=== PATIENT | male | born 1980 | race Caucasian/White ===

== ENCOUNTER → 2020-10-14 | Outpatient (CLI) | payer OTHER ==
[~2020-10-14] MED LIST: COVID-19 VACC, MRNA(MODERNA)/PF 100 MCG/0.5 ML VIAL IM ONE
== END ==
LOC: VACCPMC 13:45
DX: Z23 Encounter for immunization (principal); Z20.828 Contact with and (suspected) exposure to other viral communicable diseases

== ENCOUNTER → 2021-08-13 | Outpatient (CLI) | payer OTHER | LOC: VACCPMC 08:15 | DX: Z23 Encounter for immunization (principal); Z20.822 Contact with and (suspected) exposure to COVID-19 | CPT/HCPCS: 91301 ==

== ENCOUNTER → 2022-12-24 | Outpatient (CLI) | payer BC, OTHER ==
[2022-12-25 10:19] LABS: PROSTATE SPECIFIC AG TOTAL 0.8 ng/mL (0.0-4.0); PSA FREE 0.39 ng/mL
== END ==
LOC: LAB 11:37
PROVIDERS: ATTEND Internal Medicine
DX: E29.1 Testicular hypofunction (principal); Z79.899 Other long term (current) drug therapy
CPT/HCPCS: 82672; 84153; 84402

== ENCOUNTER → 2024-09-28 | Outpatient (REF) | payer BC ==
[2024-09-28 12:13] LABS: BASOPHILS # (AUTO) 0.1 (0.0-0.1); EOSINOPHILS # (AUTO) 0.3 (0.0-0.4); HEMATOCRIT 60.3 % (38.2-49.6); HEMOGLOBIN 19.7 g/dL (14.0-18.0); LYMPHOCYTES # (AUTO) 1.7 (1.0-3.2); LYMPHOCYTES % 20.6 % (18.0-39.1); MEAN CORPUSCULAR HEMOGLOBIN 31.2 pg (28-32); MEAN CORPUSCULAR HGB CONC 32.7 g/dL (31-35); MEAN CORPUSCULAR VOLUME 95.4 fL (81-99); MONOCYTES # (AUTO) 0.5 (0.2-0.8); MONOCYTES % 6.1 % (4.4-11.3); NEUTROPHILS # (AUTO) 5.7 (2.1-6.9); NEUTROPHILS % 68.9 % (38.7-80.0); PLATELET COUNT 194 x10e3/uL (140-360); RED BLOOD COUNT 6.32 x10e6/uL (4.3-5.7); RED CELL DISTRIBUTION WIDTH 12.8 % (11.7-14.4); WHITE BLOOD COUNT 8.24 x10e3/uL (4.8-10.8)
== END ==
LOC: LAB 11:39
PROVIDERS: ATTEND Internal Medicine
DX: R73.03 Prediabetes (principal); E29.1 Testicular hypofunction
CPT/HCPCS: 36415; 82672; 83036; 84152; 84402; 85025